=== PATIENT | female | born 1950 | race Caucasian/White ===

== ENCOUNTER 2019-06-20 08:57 | Outpatient (CLI) | payer MEDICARE | END 2019-06-20 23:59 | disposition home or self-care (01) | LOC: RAD 08:57 | PROVIDERS: ATTEND Psychiatry & Neurology Neurology | DX: R41.89 Other symptoms and signs involving cognitive functions and awareness (principal); Z87.891 Personal history of nicotine dependence | CPT/HCPCS: 95816 ==

== ENCOUNTER 2020-01-21 14:07 | Emergency (ER) | payer MEDICARE, MEDICAID ==
[~2020-01-21] VITALS: Ht 157.5 cm; Wt 61.4 kg
[2020-01-21 16:33] VITALS: BP 122/96
== END 2020-01-21 16:38 | disposition home or self-care (01) ==
LOC: ER 14:07
DX: S63.92XA Sprain of unspecified part of left wrist and hand, initial encounter (principal); S60.445A External constriction of left ring finger, initial encounter; Z88.5 Allergy status to narcotic agent; W18.39XA Other fall on same level, initial encounter; Y93.89 Activity, other specified; Y92.89 Other specified places as the place of occurrence of the external cause; Y99.8 Other external cause status
CPT/HCPCS: 73130; 99284